=== PATIENT | male | born 1970 | race Caucasian/White ===

== ENCOUNTER 2016-11-30 05:36 | Emergency (ER) | payer OTHER ==
[~2016-11-30] VITALS: Ht 175.3 cm; Wt 77.1 kg
--- NOTE | 2016-11-30 06:04 | ED INFLUENZA/URI COMPLAINT ---
History of Present Illness General Chief Complaint: General Adult Stated Complaint: "PER PT FEEL LIKE THROAT IS CLOSING UP" Source: patient Exam Limitations: no limitations Vital Signs & Intake/Output Vital Signs & Intake/Output Vital Signs Date Time Temp Pulse Resp B/P Pulse O2 O2 Flow FiO2 Ox Delivery Rate 11/30 0837 97.0 77 16 103/68 100 Room Air 11/30 0559 98 Room Air 11/30 0556 97.0 90 16 123/85 98 Room Air Room Air Allergies Coded Allergies: shellfish derived (Intermediate, ANAPHYLAXIS 11/30/16) penicillin G (UNKNOWN 11/30/16) Reconcile Medications Epinephrine (Epipen 2-Tevin) 0.3 MG/0.3 ML AUTO.INJCT 1 UNIT SC ONCE PRN ANAPHYLAXIS Prednisone 20 MG TABLET 2 TAB PO D ALLERGIC REACTION Triage Note: 46yo MALE TO 3 W/CO "FEELING OF THROAT CLOSING DENIES ANY RESP DISTRESS. RA SAT = 98. Triage Nurses Notes Reviewed? yes Onset: Abrupt (1) Duration: day(s): (1) Timing: single episode today Severity: moderate Modifying Factors: Worsens With: other (SWALLOWING). Associated Symptoms: LUMP IN THROAT HPI: This is a 46-year-old male with history of type 1 diabetes, history of shellfish allergy who presents to the ER with chief complaint of feeling like something was closing in his throat this point. He states when he woke up this morning he had a "furball" sensation in his throat. He tried to swallow and tried to spit it up without relief. Some complaint of itching on the side of his neck. No rash. No difficulty breathing. Patient denies eating any shellfish last night. He was staying over discomfort house who has Been states that sometimes he gets some mild swelling and itching with a cat. He has PAST BEFORE AND HAS NEVER HAD THIS REACTION. Past History Travel History Traveled to [place] past 21 day No Medical History Any Pertinent Medical History? see below for history Endocrine: IDDM Surgical History Surgical History: non-contributory Psychosocial History What is your primary language [place] Tobacco Use: Never used ETOH Use: occasional use Family History Hx Contributory? No Review of Systems Review of Systems Constitutional: Denies: chills, fever, malaise, weakness. EENTM: Reports: see HPI (DIFFICULTY SWALLOWING). Respiratory: Denies: cough, short of breath, sputum production. Cardiovascular: Denies: chest pain, palpitations. GI: Denies: abdominal pain. Genitourinary: Reports: no symptoms. Musculoskeletal: Reports: no symptoms. Skin: Denies: rash. Neurological/Psychological: Reports: anxiety. Hematologic/Endocrine: Denies: bruising, bleeding, polyuria, polydipsia. Immunologic/Allergic: Denies: splenectomy. All Other Systems: Reviewed and Negative Physical Exam Physical Exam General Appearance: well developed/nourished, alert, awake, anxious, mild distress Head: atraumatic, normal appearance Eyes: Bilateral: normal appearance, PERRL, EOMI. Ears, Nose, Throat: SWOLLEN/EDEMATOUS UVULA Neck: normal inspection, supple, full range of motion, NO STRIDOR Respiratory: normal breath sounds, chest non-tender, no respiratory distress, NO WHEEZING Cardiovascular: regular rate/rhythm Gastrointestinal: normal bowel sounds, soft, non-tender Back: normal inspection, normal range of motion Extremities: normal inspection, normal capillary refill, normal range of motion, no edema Neurologic/Psych: no motor/sensory deficits, awake, alert, oriented x 3 Skin: intact, normal color, warm/dry Core Measures Severe Sepsis Present: No Septic Shock Present: No Progress Differential Diagnosis: UVULITIS, ALLERGIC REACTION Plan of Care: Current Medications Sig/Concepcion Start time Last Medication Dose Stop Time Status Admin Diphenhydramine HCl 50 MG ONCE ONE 11/30 614 AC (Benadryl) 11/30 615 Famotidine 20 MG ONCE ONE 11/30 614 AC (Pepcid) 11/30 615 Prednisone 60 MG ONCE ONE 11/30 614 AC 11/30 615 Initial ED EKG: none Departure Departure Disposition: HOME OR SELF CARE Condition: Stable Clinical Impression Primary Impression: Uvulitis Referrals: ALEXA LOPEZ,ABNER Landry (PCP/Family) Additional Instructions: Take Benadryl as needed for swelling. Take the prednisone as directed. Follow- up with her doctor in the office for allergy testing. Always have the EpiPen available should you have a future allergic reaction. Departure Forms: Customer Survey General Discharge Information Prescriptions: Current Visit Scripts Prednisone 2 TAB PO D #6 TAB Epinephrine (Epipen 2-Tevin) 1 UNIT SC ONCE PRN ANAPHYLAXIS #2 PEN
[2016-11-30] MEDS ORDERED: PREDNISONE20 M1 PO (06:15)
[2016-11-30] MEDS ORDERED: EPIPEN 2-P0.3 MG/0.3 SC (06:15)
[2016-11-30 08:37] VITALS: BP 103/68
== END 2016-11-30 08:39 ==
LOC: ERH 05:36
DX: K12.2 Cellulitis and abscess of mouth (principal)